=== PATIENT | female | born 1955 | race Caucasian/White ===

== ENCOUNTER 2021-01-27 23:44 | Emergency (ER) | payer OTHER ==
[~2021-01-27] VITALS: Ht 167.6 cm; Wt 79.4 kg
[~2021-01-27 23:44] MED LIST: ALPR.25; METF500; METH40; PRAV20; Prinivil10 MG; TRAZ50
== END 2021-01-28 01:35 | disposition home or self-care (01) ==
LOC: ER 23:44
DX: S09.90XA Unspecified injury of head, initial encounter (principal); S51.811A Laceration without foreign body of right forearm, initial encounter; S80.01XA Contusion of right knee, initial encounter; S00.81XA Abrasion of other part of head, initial encounter; S80.212A Abrasion, left knee, initial encounter; F17.200 Nicotine dependence, unspecified, uncomplicated; E11.9 Type 2 diabetes mellitus without complications; Z79.84 Long term (current) use of oral hypoglycemic drugs; Z79.899 Other long term (current) drug therapy; W10.1XXA Fall (on)(from) sidewalk curb, initial encounter; Y92.488 Other paved roadways as the place of occurrence of the external cause
CPT/HCPCS: 70450; 72125; 73562-RT; 96372; 99284; A9270; J1885; J3010; L0160

== ENCOUNTER → 2022-03-27 | Outpatient (CLI) | payer OTHER | LOC: LAB SHORT 12:00 → LAB 12:00 | DX: I50.30 Unspecified diastolic (congestive) heart failure (principal) | CPT/HCPCS: 83880 ==

== ENCOUNTER → 2022-06-12 | Outpatient (CLI) | payer OTHER ==
[2022-06-12 20:12] LABS: Creatinine, Urine Random 80.7 mg/dL (27.00-270.00)
[2022-06-12 20:14] LABS: Microalb/Creat Ratio UR, Rand 6.654 mg/g (0.000-30.000); Microalbumin, Random Urine 5.37 mg/L (0.000-20.000)
== END | disposition home or self-care (01) ==
LOC: LAB SHORT 17:00
PROVIDERS: Family Medicine
DX: E11.9 Type 2 diabetes mellitus without complications (principal)
CPT/HCPCS: 82043; 82570

== ENCOUNTER 2022-10-29 13:37 | Day surgery (SDC) | payer OTHER ==
[~2022-10-29] VITALS: Ht 172.7 cm; Wt 64.7 kg
--- NOTE | 2022-10-29 07:56 | NUR ---
10/29/22 [id number] Cathy Segovia 0719, LULA 0715
[2022-10-29 08:21] VITALS: BP 155/81
[~2022-10-29 13:37] MED LIST changes: +AIRDUO RESPICL1 EAC1 INH; +ALPRAZOLAM0.5 M1 PO; +Cyclobenzaprine5 MG PO; +DULOXETINE HCL60 M1 PO; +FUROSEMIDE20 MG PO; +IBUP600 PO; +Kenalog-40 m40 MG/ML; +LISI20 PO; +OMEP20ER PO; +SPIRONOLACTONE50 MG PO; +Ventolin/Prove6.7 GM INH
== END 2022-10-29 14:00 | disposition home or self-care (01) ==
LOC: ORSCSDS 13:37
PROVIDERS: Ophthalmology
PROC: 08DJ3ZZ Extraction of Right Lens, Percutaneous Approach (ICD-10-PCS; principal; 2022-10-29 08:00)
DX: H25.11 Age-related nuclear cataract, right eye (principal); E11.36 Type 2 diabetes mellitus with diabetic cataract; I10 Essential (primary) hypertension; J44.9 Chronic obstructive pulmonary disease, unspecified; Z79.899 Other long term (current) drug therapy
CPT/HCPCS: 82947; J2250; J3010; J7040; V2632

== ENCOUNTER → 2022-11-01 | Outpatient (CLI) | payer OTHER ==
[2022-11-01 20:02] LABS: Bun/Creatinine Ratio 25.2 (12.0-20.0); Calcium, Blood 9.3 mg/dL (8.5-10.1); Creatinine, Blood 1.11 mg/dL (0.40-1.00); Potassium, Blood 4.3 mmol/L (3.5-5.5)
== END | disposition home or self-care (01) ==
LOC: LAB 17:55 → LAB SHORT 17:55
PROVIDERS: Family Medicine
DX: I50.30 Unspecified diastolic (congestive) heart failure (principal)
CPT/HCPCS: 80048

== ENCOUNTER → 2022-11-20 | Outpatient (CLI) | payer OTHER | END | disposition home or self-care (01) | LOC: LAB SHORT 12:10 → LAB 12:10 | PROVIDERS: Family Medicine | DX: R25.2 Cramp and spasm (principal) | CPT/HCPCS: 82728; 83540; 83550 ==

== ENCOUNTER → 2023-03-11 | Outpatient (CLI) | payer OTHER | END | disposition home or self-care (01) | LOC: LAB SHORT 15:35 → LAB 15:35 | DX: M06.9 Rheumatoid arthritis, unspecified (principal) | CPT/HCPCS: 86200; 86430 ==

== ENCOUNTER → 2023-04-18 | Outpatient (CLI) | payer OTHER ==
[2023-04-18 13:35] LABS: Source, Urine Clean Catch
[2023-04-18 15:03] LABS: Squamous Epithelial Cells Rare /hpf (Few); White Blood Cells, Urine 0-2 /hpf (0-5)
[2023-04-18 15:04] LABS: Bacteria Rare /hpf
== END ==
LOC: LAB SHORT 13:33 → LAB 13:33
PROVIDERS: Family Medicine
DX: R63.4 Abnormal weight loss (principal)
CPT/HCPCS: 81015

== ENCOUNTER → 2023-05-19 | Outpatient (CLI) | payer OTHER ==
[2023-05-19 17:44] LABS: Microalbumin, Urine Quant. <5.000 mg/L (0.000-20.000); Protein, Urine Quantitative <5.0 mg/dL (0.0-11.9)
== END ==
LOC: LAB 13:18 → LAB SHORT 13:18
PROVIDERS: Internal Medicine Nephrology
DX: N18.30 Chronic kidney disease, stage 3 unspecified (principal); D63.1 Anemia in chronic kidney disease; N25.81 Secondary hyperparathyroidism of renal origin; E55.9 Vitamin D deficiency, unspecified; E78.00 Pure hypercholesterolemia, unspecified; R76.9 Abnormal immunological finding in serum, unspecified; R94.5 Abnormal results of liver function studies; R94.6 Abnormal results of thyroid function studies; D51.8 Other vitamin B12 deficiency anemias; D52.8 Other folate deficiency anemias; D50.9 Iron deficiency anemia, unspecified
CPT/HCPCS: 81050; 82043; 82570; 84156

== ENCOUNTER → 2023-05-21 | Outpatient (CLI) | payer OTHER | LOC: LAB SHORT 16:29 → LAB 16:29 | DX: N39.0 Urinary tract infection, site not specified (principal) | CPT/HCPCS: 87086 ==

== ENCOUNTER → 2023-05-23 | Outpatient (CLI) | payer OTHER ==
[2023-05-23 13:18] LABS: Calcium, Blood 9.7 mg/dL (8.5-10.1); Creatinine, Blood 0.91 mg/dL (0.40-1.00)
== END | disposition home or self-care (01) ==
LOC: LAB 12:20 → LAB SHORT 12:20
PROVIDERS: Family Medicine
DX: R07.9 Chest pain, unspecified (principal)
CPT/HCPCS: 80048

== ENCOUNTER 2023-07-29 08:56 | Day surgery (SDC) | payer OTHER ==
[2023-07-29] VITALS (16 sets, daily range): BP systolic 121–231; BP diastolic 69–197
[~2023-07-29] VITALS: Ht 172.7 cm; Wt 65.9 kg
[2023-07-29] MEDS ORDERED: Lactated Ringer's 1,000 ML IV SCH (10:05)
[2023-07-29] MEDS ORDERED: propofoL 40 ML IV ONE (11:09)
[2023-07-29] MEDS ORDERED: Midazolam HCl 1MG / ML 2ML Vial ONE (11:10)
--- NOTE | 2023-07-29 11:24 | NUR ---
07/29/23 1124 Mariam Guerrero HISTORY, CHART, MEDICATIONS AND ALLERGIES REVIEWED BEFORE START OF PROCEDURE. PATIENT CONFIRMS NPO STATUS AND AGREES WITH SCHEDULED PROCEDURE. 3-LEAD EKG REVIEWED WITH PHYSICIAN PRIOR TO START OF PROCEDURE. MONITOR INTACT WITH CONTINUOUS PULSE OXIMETRY,CAPNOGRAPHY, 3-LEAD EKG, INTERMITTENT BP. SUPPLEMENTAL O2 TO BE TITRATED THROUGHOUT PROCEDURE TO MAINTAIN O2 SATURATION ABOVE 90%. PATIENT DETERMINED TO BE ASA APPROPRIATE FOR PROPOFOL SEDATION PRIOR TO START OF PROCEDURE BY DR. MITCHELL. MALLAMPATI CLASS 1 AIRWAY: COMPLETE VISULATIZATION OF THE SOFT PALATE.
--- NOTE | 2023-07-29 11:55 | NUR ---
REPORT RECEIVED FROM AUBREY AJ. VSS. PT ON RA. PT ABLE TO REPOSITION SELF IN BED. PT REQUESTING PO FLUIDS AND TOLERATING THEM WELL. PT DENIES PAIN, NAUSEA OR OTHER DISCOMFORTS.
== END 2023-07-29 12:16 | disposition home or self-care (01) ==
LOC: ORSCMMR 08:56
PROVIDERS: Internal Medicine Gastroenterology
PROC: 0DJD8ZZ Inspection of Lower Intestinal Tract, Via Natural or Artificial Opening Endoscopic (ICD-10-PCS; principal; 2023-07-29 10:00)
DX: R10.33 Periumbilical pain (principal); Z86.010 Personal history of colon polyps; E11.9 Type 2 diabetes mellitus without complications; I10 Essential (primary) hypertension; F32.A Depression, unspecified; F41.9 Anxiety disorder, unspecified; R11.0 Nausea; E78.00 Pure hypercholesterolemia, unspecified; F17.210 Nicotine dependence, cigarettes, uncomplicated; Z79.84 Long term (current) use of oral hypoglycemic drugs; Z79.899 Other long term (current) drug therapy
CPT/HCPCS: 82947; J2250; J2704; J7120

== ENCOUNTER → 2024-06-29 | Outpatient (CLI) | payer OTHER ==
[2024-06-29 11:55] LABS: Source, Urine Clean Catch
[2024-06-29 15:24] LABS: Bacteria Rare /hpf; Squamous Epithelial Cells Rare /hpf (Few); White Blood Cells, Urine 0-2 /hpf (0-5)
[2024-06-29 19:27] LABS: Creatinine, Urine Random 38.3 mg/dL (27.00-270.00); Microalb/Creat Ratio UR, Rand 48.825 mg/g (0.000-30.000); Microalbumin, Random Urine 18.7 mg/L (0.000-20.000)
== END ==
LOC: LAB 11:51 → LAB SHORT 11:51
PROVIDERS: Family Medicine
DX: R31.29 Other microscopic hematuria (principal)
CPT/HCPCS: 81015; 82043; 82570; 87086